=== PATIENT | female | born 1985 ===

== ENCOUNTER 2018-01-10 13:22 | Emergency (ER) | payer MEDICAID ==
[~2018-01-10 13:22] MED LIST: HYDR12.561 PO
--- NOTE | 2018-01-10 13:29 | ER Report ---
History and Physical Time Seen By MD: 13:29 Hx. of Stated Complaint: DIFFICULTY WITH FORMING SENTENCES FOR THE LAST HOUR. C/O LIGHTHEADEDNESS AND FEELING FOGGY HPI/ROS CHIEF COMPLAINT: Stroke symptoms HISTORY OF PRESENT ILLNESS: This is a 32-year-old female who presents to the emergency department with strokelike symptoms. According to she and her about 12:30 today she came home from her [employer] class and felt lightheaded, no dizziness and was having some difficulties finding her words. She was having some difficulties using her phone and having some difficulties concentrating and reading. Her became concerned and they decided come in for further evaluation. Patient does arrive alert and oriented but she feels that she is aphasic. She is able to think of the words but unable to express what she is thinking. Patient denies headaches, nausea, vomiting, aches, chills, chest pain or shortness of breath. REVIEW OF SYSTEMS: Constitutional: No fever, no chills. Eyes: No discharge. ENT: No sore throat. Cardiovascular: No chest pain, no palpitations. Respiratory: No cough, no shortness of breath. Gastrointestinal: No abdominal pain, no vomiting. Genitourinary: No hematuria. Musculoskeletal: No back pain. Skin: No rashes. Neurological: As above. Allergies: Coded Allergies: No Known Drug Allergies (Unverified , 05/04/17) Home Meds Discontinued Scripts Hydrochlorothiazide (HYDROCHLOROTHIAZIDE) 12.5 Mg Tablet, 1 TAB PO QDAY, #30 TAB 0 Refills Prov:PARAM PEDRAZA MD 05/04/17 Past Medical/Surgical History She has a past medical and surgical history of post nasal hypertension, 1 normal vaginal delivery. Reviewed Nurses Notes: Yes Hx Substance Use Disorder: No Constitutional Vital Sign - Last 24 Hours 01/10/18 01/10/18 01/10/18 01/10/18 13:26 16:15 16:20 16:30 Temp 98.7 Pulse 80 68 72 Resp 16 7 14 B/P (MAP) 148/98 125/89 (101) 125/89 (101) Pulse Ox 96 95 95 O2 Delivery Room Air 01/10/18 01/10/18 01/10/18 01/10/18 16:35 16:50 17:00 17:05 Pulse 70 75 71 Resp 24 10 12 B/P (MAP) 136/100 (112) Pulse Ox 94 96 95 01/10/18 01/10/18 01/10/18 17:20 17:30 17:35 Pulse 70 61 Resp 16 11 B/P (MAP) 131/91 (104) Pulse Ox 97 97 Physical Exam General Appearance: The patient is alert, has no immediate need for airway protection and no signs of toxicity. Eyes: Pupils equal and round no pallor or injection. EOMs intact, tracking well , no nystagmus. ENT, Mouth: Mucous membranes are moist. Respiratory: There are no retractions, lungs are clear to auscultation. Cardiovascular: Regular rate and rhythm, no murmurs, clicks or rubs. Gastrointestinal: Abdomen is soft and non tender, no masses, bowel sounds normal. Neurological: Alert and oriented 4. Moving all extremities. Mild left sided facial droop when smiling, cheeks puffed out. When sticking tongue out, slight deviation to the right. Intact shoulder shrug. Rapid alternating movements of the hands intact. Finger to nose intact. No pronator drift. Equal steel barrel reamer strength , very slight loss of sensation on the left lower and upper extremity. Heel-to- ramírez intact bilaterally. Skin: Warm and dry, no rashes. Musculoskeletal: Neck is supple non tender. Extremities are nontender, nonswollen and have full range of motion. DIFFERENTIAL DIAGNOSIS: After history and physical exam differential diagnosis was considered for altered mental status including but not limited to hypoglycemia, infectious process, electrolyte abnormality, TIA, stroke head injury and intoxicants. NIH Stroke Scale: 3 Level of consciousness:0 Alert Answers both questions correctly Performs both tasks correctly Best Gaze:0 Normal Visual:0 No visual loss Facial Palsy: 1 Normal, symmetrical movements Motor Left Arm:0 No drift for 10 seconds Motor Right Arm:0 No drift for 10 seconds Motor Left Le No drift for 5 seconds Motor Right Le No drift for 5 seconds Limb Ataxia:0 Absent Sensory: 1 Normal, no sensory loss Best Language: 1 Normal, no aphasia Dysarthria:0 Normal Extinction and Inattention:0 No abnormality Medical Decision Making Data Points Result Diagram: 01/10/18 1330 01/10/18 1330 Laboratory Hematology Test 01/10/18 13:30 Red Blood Count 5.14 M/uL (4.17-5.56) Mean Corpuscular Volume 88.2 fL (80.0-96.0) Mean Corpuscular Hemoglobin 30.8 pg (26.0-33.0) Mean Corpuscular Hemoglobin Concent 34.9 g/dL (32.0-36.0) Red Cell Distribution Width 12.9 % (11.5-14.5) Mean Platelet Volume 7.4 fL (7.2-11.1) Neutrophils (%) (Auto) 50.0 % (39.4-72.5) Lymphocytes (%) (Auto) 41.4 % (17.6-49.6) Monocytes (%) (Auto) 4.2 % (4.1-12.4) Eosinophils (%) (Auto) 3.6 % (0.4-6.7) Basophils (%) (Auto) 0.8 % (0.3-1.4) Nucleated RBC Relative Count (auto) 0.0 /100WBC Neutrophils # (Auto) 4.1 K/uL (2.0-7.4) Lymphocytes # (Auto) 3.4 K/uL (1.3-3.6) Monocytes # (Auto) 0.3 K/uL (0.3-1.0) Eosinophils # (Auto) 0.3 K/uL (0.0-0.5) Basophils # (Auto) 0.1 K/uL (0.0-0.1) Nucleated RBC Absolute Count (auto) 0.00 K/uL Peripheral Blood Smear No Y/N Prothrombin Time 12.5 seconds (12.0-14.4) Prothromb Time International Ratio 0.93 Activated Partial Thromboplast Time 28 seconds (23-35) Sodium Level 141 mmol/L (137-145) Potassium Level 3.6 mmol/L (3.5-5.0) Chloride Level 103 mmol/L (98-107) Carbon Dioxide Level 22 mmol/L (22-31) Blood Urea Nitrogen 14 mg/dl (7-18) Creatinine 1.00 mg/dl (0.52-1.04) Glomerular Filtration Rate Calc > 60.0 Random Glucose 83 mg/dl (75-110) Calcium Level 9.9 mg/dl (8.4-10.2) Total Bilirubin 0.4 mg/dl (0.2-1.3) Aspartate Amino Transf (AST/SGOT) 26 U/L (0-35) Alanine Aminotransferase (ALT/SGPT) 54 U/L (0-56) Alkaline Phosphatase 106 U/L (0-126) Troponin I < 0.012 ng/ml Total Protein 8.6 gm/dl (6.3-8.2) Albumin 4.9 g/dl (3.5-5.0) Human Chorionic Gonadotropin, Qual Negative (NEGATIVE) Chemistry Test 01/10/18 13:30 White Blood Count 8.1 k/uL (4.5-11.0) Red Blood Count 5.14 M/uL (4.17-5.56) Hemoglobin 15.9 g/dL (12.0-16.0) Hematocrit 45.4 % (34.0-47.0) Mean Corpuscular Volume 88.2 fL (80.0-96.0) Mean Corpuscular Hemoglobin 30.8 pg (26.0-33.0) Mean Corpuscular Hemoglobin Concent 34.9 g/dL (32.0-36.0) Red Cell Distribution Width 12.9 % (11.5-14.5) Platelet Count 273 K/uL (150-450) Mean Platelet Volume 7.4 fL (7.2-11.1) Neutrophils (%) (Auto) 50.0 % (39.4-72.5) Lymphocytes (%) (Auto) 41.4 % (17.6-49.6) Monocytes (%) (Auto) 4.2 % (4.1-12.4) Eosinophils (%) (Auto) 3.6 % (0.4-6.7) Basophils (%) (Auto) 0.8 % (0.3-1.4) Nucleated RBC Relative Count (auto) 0.0 /100WBC Neutrophils # (Auto) 4.1 K/uL (2.0-7.4) Lymphocytes # (Auto) 3.4 K/uL (1.3-3.6) Monocytes # (Auto) 0.3 K/uL (0.3-1.0) Eosinophils # (Auto) 0.3 K/uL (0.0-0.5) Basophils # (Auto) 0.1 K/uL (0.0-0.1) Nucleated RBC Absolute Count (auto) 0.00 K/uL Peripheral Blood Smear No Y/N Prothrombin Time 12.5 seconds (12.0-14.4) Prothromb Time International Ratio 0.93 Activated Partial Thromboplast Time 28 seconds (23-35) Glomerular Filtration Rate Calc > 60.0 Calcium Level 9.9 mg/dl (8.4-10.2) Total Bilirubin 0.4 mg/dl (0.2-1.3) Aspartate Amino Transf (AST/SGOT) 26 U/L (0-35) Alanine Aminotransferase (ALT/SGPT) 54 U/L (0-56) Alkaline Phosphatase 106 U/L (0-126) Troponin I < 0.012 ng/ml Total Protein 8.6 gm/dl (6.3-8.2) Albumin 4.9 g/dl (3.5-5.0) Human Chorionic Gonadotropin, Qual Negative (NEGATIVE) Coagulation Test 01/10/18 13:30 Prothrombin Time 12.5 seconds Prothromb Time International Ratio 0.93 Activated Partial Thromboplast Time 28 seconds EKG/Imaging EKG Interpretation 12 lead EKG: Time of EKG 1353. Rhythm: Normal sinus rhythm, 71 bpm. Midway: normal QRS: normal ST segments: No ST segment elevation or depression. Imaging Location: [facility] Patient: Shama Carmona : 1985 Visit/Account:[id number] Date of Sevice: 01/10/2018 CHEST PA AND LAT INDICATION: Lightheaded COMPARISON: None available FINDINGS: The cardiac silhouette is normal in size. No pneumothorax. Clear lungs. Normal osseous structures. No pleural fluid. IMPRESSION: Normal chest radiographs. Report Dictated By: Sacha Logan MD at 01/10/2018 2:20 PM Report E-Signed By: Sacha Logan MD at 01/10/2018 2:21 PM WSN:[id number] Location: [facility] Patient: Shama Carmona : 1985 Visit/Account:[id number] Date of Sevice: 01/10/[address] scan without contrast HISTORY: Lightheaded, aphasia COMPARISONS: None TECHNIQUE: Non-contrast head CT was performed with sagittal and coronal reformations. One of the following dose optimization techniques was utilized in the performance of this exam: automated exposure control; adjustment of the mA and/ or kV according to patient size; or use of iterative reconstruction technique. Specific details can be referenced in the facility's radiology CT exam operational policy. FINDINGS: There is no intracranial hemorrhage, hydrocephalus or midline shift. The basal cisterns, amezcua-white differentiation, and convexity sulci are maintained. Normal orbital soft tissues. Clear mastoid air cells. Opacification of a right ethmoid air cell. Shaina bullosa noted. No acute osseous abnormality. IMPRESSION: No acute intracranial abnormality. Report Dictated By: Sacha Logan MD at 01/10/2018 2:21 PM Report E-Signed By: Sacha Logan MD at 01/10/2018 2:23 PM WSN:[id number] Location: [facility] Patient: Shama Carmona : 1985 Visit/Account:[id number] [facility] Examination: MR brain without contrast History: Difficulty forming words Comparison: Head CT same day Technique: Multiplane MR imaging was performed through the brain without contrast. Findings: Diffusion: None Ventricles: Normal Midline shift: None Extraaxial fluid: None. Midline craniocervical structures: Normal Parenchyma: Normal Vascular flow voids: Normal Orbits and paranasal sinuses: Ethmoid sinus mucosal thickening. Impression: Normal non-contrast brain MR. Report Dictated By: Sacha Logan MD at 01/10/2018 4:14 PM Report E-Signed By: Sacha Logan MD at 01/10/2018 4:18 PM WSN:[id number] ED Course/Re-evaluation Clinical Indication for ER IV: IV Access ED Course The patient was admitted to a room. A history and physical were obtained. Differential diagnoses were considered. An IV was started. A CBC, CMP, PT INR and PTT were obtained. Laboratory studies unremarkable. CT of the head was negative for any acute intracranial abnormalities. NIH stroke scale of 3. The patient states that she is feeling better however she does still have some intermittent aphasic moments but overall she is feeling better. She also did tell me that she does have a left sided headache, but didn't think to mention this earlier when asked. I did review these results the patient's and her and I said the next up would be an MRI of the brain and rule out a nonhemorrhagic type of stroke. They are in agreement with this and we have elected to proceed with the MRI of the brain. Negative MRI of the brain. I did review these results with the patient and her . I did tell him that this is likely a TIA. I did speak with Dr. Tammy Bay as noted below. The patient's ultimately decided to go home and follow-up with her primary care provider for outpatient TIA workup with the understanding that she can return at any time if the symptoms return. Upon discharge the patient was feeling much better and no other complaints or concerns. Patient was in agreement with this plan of care and discharged home. 01/10/2018 5:00:29 pm I did speak with Dr. Tammy Bay regarding the patient's case. She felt that since the patient's symptoms are resolving and the patient had a negative CT and negative MRI that we could potentially send her home if that's what they would like and have her follow-up with her primary care provider for a carotid ultrasound and echocardiogram. 01/10/2018 5:26:14 pm I did discuss the possible admission with the family and they have elected to go home. I did discuss the pros and cons of both as well as worsening symptoms and they agreed that if anything changes they will come back to the emergency department. 01/10/2018 5:37:18 pm I did recommend a statin and aspirin for secondary prevention, however due to the patients status she would like to wait and discuss this in more detail with her primary care provider. Decision to Disposition Date: Jan 10, 2018 Decision to Disposition Time: 17:26 Depart Departure Latest Vital Signs Vital Signs Date Time Temp Pulse Resp B/P (MAP) Pulse Ox O2 Delivery O2 Flow Rate FiO2 01/10/18 17:35 61 11 97 01/10/18 17:30 131/91 (104) 01/10/18 13:26 98.7 Room Air Impression: Primary Impression: TIA (transient ischemic attack) Condition: Improved Disposition: HOME OR SELF-CARE Referrals: FARNAZ ALEJO (PCP) New Scripts No Active Prescriptions or Reported Meds Patient Instructions: Transient Ischemic Attack (ED) Additional Instructions: Be absolutely sure to contact her primary care provider on Friday for reevaluation as well as a TIA workup which would include carotid ultrasounds, echocardiogram, possible MRA. Be sure to monitor for signs and symptoms of stroke or recurrent symptoms. Be sure to discuss secondary prevention with your primary care provider such as statins and Aspirin. Drink plenty of water. Get plenty of rest. Continue with your current medications and daily routine. Return to the emergency department immediately for any other concerns or worsening symptoms. Problem Qualifiers Primary Impression: TIA (transient ischemic attack) Transient cerebral ischemia type: unspecified Qualified Codes: G45.9 - Transient cerebral ischemic attack, unspecified ALFRED BOWENP-BC Jan 10, 2018 13:29
[2018-01-10 13:56] LABS: PLATELET COUNT, AUTOMATED 273 K/uL (150-450)
[2018-01-10 14:01] LABS: INR 0.93
--- NOTE | 2018-01-10 14:15 | EKG ---
FACILITY: [facility] PATIENT NAME: KRISSY ZHANG : [id number] MR: [id number] V: [id number] EXAM DATE: ORDERING PHYSICIAN: ALFRED BOWEN TECHNOLOGIST: ELVER Test Reason : DIZZY Blood Pressure : / mmHG Vent. Rate : 071 BPM Atrial Rate : 071 BPM P-R Int : 156 ms QRS Dur : 092 ms QT Int : 376 ms P-R-T Axes : 035 014 006 degrees QTc Int : 408 ms Normal sinus rhythm Normal ECG No previous ECGs available Confirmed by NAHUN WALKER ([id number]) on 01/10/2018 8:00:07 PM Referred By: MILO Confirmed By:NAHUN WALKER
--- NOTE | 2018-01-10 14:24 | RADIOLOGY IMAGING REPORT ---
FACILITY: [facility] [place] PATIENT NAME: Shama Carmona : 1985 MR: [id number] V: [id number] EXAM DATE: ORDERING PHYSICIAN: ALFRED BOWEN TECHNOLOGIST: Location: [facility] [place] Patient: Shama Carmona : 1985 Visit/Account:[id number] Date of Sevice: 01/10/2018 CHEST PA AND LAT INDICATION: Lightheaded COMPARISON: None available FINDINGS: The cardiac silhouette is normal in size. No pneumothorax. Clear lungs. Normal osseous st ructures. No pleural fluid. IMPRESSION: Normal chest radiographs. Report Dictated By: Sacha Logan MD at 01/10/2018 2:20 PM Report E-Signed By: Sacha Logan MD at 01/10/2018 2:21 PM WSN:[id number]
--- NOTE | 2018-01-10 14:27 | RADIOLOGY IMAGING REPORT ---
FACILITY: [facility] [place] PATIENT NAME: Shama Carmona : 1985 MR: [id number] V: [id number] EXAM DATE: ORDERING PHYSICIAN: ALFRED BOWEN TECHNOLOGIST: [place] [facility] [place]: Shama Carmona : 1985 Visit/Account:[id number] Date of Sevice: 01/10/[address] scan without contrast HISTORY: Lightheaded, aphasia COMPARISONS: None TECHNIQUE: Non-contrast head CT was performed with sagittal and coronal reformations. One of the following dose optimization techniques was utilized in the performance of this exam: autom ated exposure control; adjustment of the mA and/or kV according to patient size; or use of iterative reconstruction technique. Specific details can be referenced in the facility's radiology CT exam ope rational policy. FINDINGS: There is no intracranial hemorrhage, hydrocephalus or midline shift. The basal cisterns, amezcua-white differentiation, and convexity sulci are maintained. Normal orbital soft tissues. Clear mastoid air cells. Opacification of a right ethmoid air cell. Shaina bullosa noted. No acute os seous abnormality. IMPRESSION: No acute intracranial abnormality. Report Dictated By: Sacha Logan MD at 01/10/2018 2:21 PM Report E-Signed By: Sacha Loagn MD at 01/10/2018 2:23 PM WSN:[id number]
--- NOTE | 2018-01-10 16:24 | RADIOLOGY IMAGING REPORT ---
FACILITY: PATIENT NAME: Shama Carmona : 1985 MR: [id number] V: [id number] EXAM DATE: ORDERING PHYSICIAN: ALFRED BOWEN TECHNOLOGIST: Location: [facility] [place] Patient: Shama Carmona : 1985 Visit/Account:[id number] Date of Sevice: 01/10/2018 Examination: MR brain without contrast History: Difficulty forming words Comparison: Head CT same day Technique: Multiplane MR imaging was performed through the brain without contrast. Findings: Diffusion: None Ventricles: Normal Midline shift: None Extraaxial fluid: None. Midline craniocervical structures: Normal Parenchyma: Normal Vascular flow voids: Normal Orbits and paranasal sinuses: Ethmoid sinus mucosal thickening. Impression: Normal non-contrast brain MR. Report Dictated By: Sacha Logan MD at 01/10/2018 4:14 PM Report E-Signed By: Sacha Logan MD at 01/10/2018 4:18 PM WSN:[id number]
[2018-01-10 17:30] VITALS: BP 131/91
== END 2018-01-10 17:56 | disposition home or self-care (01) ==
LOC: ER 13:37
DX: G45.9 Transient cerebral ischemic attack, unspecified (principal)
CPT/HCPCS: 70450; 70551; 71046; 82040; 82247; 82310; 82374; 82435; 82565; 82947; 84075; 84132; 84155; 84295; 84450; 84460; 84484; 84520; 84703; 85025; 85610; 85730; 93005; 99284

== ENCOUNTER → 2018-01-16 | Outpatient (CLI) | payer MEDICAID ==
--- NOTE | 2018-01-16 17:27 | RADIOLOGY IMAGING REPORT ---
FACILITY: [facility] PATIENT NAME: Shama Carmona : 1985 MR: [id number] V: [id number] EXAM DATE: ORDERING PHYSICIAN: FARNAZ ALEJO TECHNOLOGIST: Location: [facility] Patient: Shama Carmona : 1985 Visit/Account:[id number] Date of Sevice: 01/16/2018 CAROTID HISTORY: Possible TIA COMPARISON: None. FINDINGS: Grayscale, duplex and color Doppler interrogation of the extracranial carotid and vertebral arteries was performed bilateral. On the right, peak systolic velocities within the common and internal carotid arteries are 106 and 94 cm/sec respectively. No plaque formation is identified. Doppler waveforms are within normal limits .. Antegrade flow within the common, internal and external carotid arteries as well as vertebral art luh. ICA/CCA ratio 0.9. On the left, peak systolic velocities within the common and internal carotid arteries are 113 and 70 cm/sec respectively. No plaque formation is identified. Doppler waveforms are within normal limits. . Antegrade flow within the common, internal and external carotid arteries as well as vertebral mayur ry. ICA/CCA ratio 0.6. IMPRESSION: Normal carotid ultrasound Velocity criteria are extrapolated from diameter data as defined by the Society of Radiologists in [facility] Consensus Conference Radiology 2003; 229;340-346 Report Dictated By: Jayden Barton at 01/16/2018 5:21 PM Report E-Signed By: Jayden Barton at 01/16/2018 5:22 PM WSN:SALTY
== END ==
LOC: US 01-15 01:10
PROVIDERS: ATTEND Nurse Practitioner Family
DX: G45.9 Transient cerebral ischemic attack, unspecified (principal); I10 Essential (primary) hypertension; E78.5 Hyperlipidemia, unspecified
CPT/HCPCS: 93880

== ENCOUNTER → 2018-01-16 | Outpatient (CLI) | payer MEDICAID ==
--- NOTE | 2018-01-19 14:36 | RADIOLOGY IMAGING REPORT ---
FACILITY: PATIENT NAME: KRISSY ZHANG : [id number] MR: [id number] V: [id number] EXAM DATE: [id number] ORDERING PHYSICIAN: VERONIKA HAQUE TECHNOLOGIST: Veronika Severino EXAMINATION:TWO-DIMENSIONAL ECHOCARDIOGRAPH REASON: QUESTIONABLE STROKE 2D Measurements (normal values in centimeters) LV endLV endRV endVent.LV PostAorticLeftPercent DiastolicSystolicDiastolicSeptumWallRootAtriumShortening (3.5-5.7)(0.9-2.6)(0.6-1.1)(0.6-1.1)(2.0-3.7)(1.9-4.0)(25-35%) [id number] STROKE VOLUME: 59 ESTIMATED EJECTION FRACTION: 68% PARASTERNAL LONG AXIS: Overall left ventricular systolic function appears to be normal. Chamber sizes also appear to be normal. Aortic valve and mitral valve both appear to open normally. Color examination reveals a trace of mitral insufficiency. Color examination of the aortic valve was unremarkable. Also a trace of tricuspid insufficiency is noted. PARASTERNAL SHORT AXIS: Overall left ventricular systolic function is normal. Chamber sizes also appear to be normal. Aortic valve was trileaflet in configuration and appears to open normally. Color examination tricuspid valve reveals a trace amount of tricuspid insufficiency present. APICAL FOUR AND TWO CHAMBER: Normal left ventricular ejection fraction. Normal chamber sizes. Trace of mitral and tricuspid insufficiency is noted. The aortic valve area and mitral valve area both measure within normal ranges of 2.5 and 2.2cm/2 respectfully. The left atrial and right atrial volumes also measure within normal ranges 19 and 22ml/m2. Tricuspid regurgitation Vmax measured 2.16m/sec. Estimated right atrial pressure is 3mm Hg giving a total right ventricular pressure within normal ranges at 22mm Hg. The TAPSE measured 2.7 which is indicative of normal right ventricular function. SUBCOSTAL VIEW: No pericardial effusion was noted. No atrioseptal or ventriculoseptal defects were noted. Agitated saline bubble contrast study was done. Doppler examination of the mitral valve in diastole is normal. IVC is normal in size. OVERALL IMPRESSION: 1. Essentially normal Two-Dimensional Echocardiograph. Normal left ventricular systolic and diastolic function and normal chamber sizes. The patient appears to be in sinus rhythm. Normal aortic valve with no abnormalities. There is a trace of mitral and tricuspid insufficiency with normal right ventricular systolic pressures. 2. No atrioseptal or ventriculoseptal defects were noted and an agitated saline bubble contrast study was done. No thrombi are noted in any of the chambers but the left atrial appendage was not seen. Dictated by: John Paul Pichardo M.D. on 01/16/2018 at 22:02 Transcribed by: RAY on 01/19/2018 at 11:42 Approved by: John Paul Pichardo M.D. on 01/19/2018 at 14:35 [facility]
== END ==
LOC: US 03:09
PROVIDERS: ATTEND Physician Assistant Medical
DX: I34.0 Nonrheumatic mitral (valve) insufficiency (principal); I07.1 Rheumatic tricuspid insufficiency
CPT/HCPCS: 93306; 93880

== ENCOUNTER → 2018-12-07 | Outpatient (CLI) | payer OTHER ==
[~2018-12-07] MED LIST changes: +FLU60SYR36 IM; +PREN-127 PO
[2018-12-07 11:37] LABS: PLATELET COUNT, AUTOMATED 244 K/uL (150-450)
== END ==
LOC: LAB 08:06
PROVIDERS: ATTEND Obstetrics & Gynecology
DX: Z34.81 Encounter for supervision of other normal pregnancy, first trimester (principal)
CPT/HCPCS: 36415; 81001; 85025; 86592; 86703; 86762; 86850; 86900; 86901; 87088; 87340

== ENCOUNTER → 2018-12-11 | Outpatient (CLI) | payer OTHER | LOC: LAB 14:17 | PROVIDERS: ATTEND Advanced Practice Midwife | DX: Z11.8 Encounter for screening for other infectious and parasitic diseases (principal); Z11.3 Encounter for screening for infections with a predominantly sexual mode of transmission | CPT/HCPCS: 87491; 87591 ==

== ENCOUNTER → 2018-12-14 | Outpatient (CLI) | payer OTHER ==
--- NOTE | 2018-12-14 12:45 | RADIOLOGY IMAGING REPORT ---
FACILITY: [facility] [place] PATIENT NAME: Shama Carmona : 1985 MR: [id number] V: [id number] EXAM DATE: ORDERING PHYSICIAN: ROBERT CHOUDHURY TECHNOLOGIST: Location[place] [facility] [place] Patient: Shama Carmona : 1985 Visit/Account:[id number] Date of Sevice: 12/14/2018 [facility] OB TRANSVAGINAL EXAMINATION: OB ultrasound < 14 weeks COMPARISON STUDIES: None FINDINGS: Gastrointestinal sac: Intrauterine and unremarkable Yolk sac: Present pole: Present Cardiac activity: 161 bpm Estimated gestational age: 10 weeks, three days is based on average crown-rump length of 3.48 cm. Subchorionic hemorrhage: None Uterus: Gravid, otherwise negative Maternal ovaries: Right ovary measuring 3.5 x 2 x 1.6 cm in size. Left ovary measuring 3.2 x 1.6 x 1 .7 cm Adnexa:Negative Free pelvic fluid: None IMPRESSION: IUP of 10 weeks three days. DIMAS of 07/09/2019. This is slightly ahead of the LMP DIMAS calculated at Report Dictated By: Gavino Fernandez MD at 12/14/2018 12:38 PM Report E-Signed By: Gavino Fernandez MD at 12/14/2018 12:41 PM WSN:[email or web address]
== END ==
LOC: RAD 10:00
PROVIDERS: ATTEND Advanced Practice Midwife
DX: Z02.9 Encounter for administrative examinations, unspecified (principal)

== ENCOUNTER → 2019-01-08 | Outpatient (CLI) | payer OTHER | LOC: LAB 13:14 | PROVIDERS: ATTEND Advanced Practice Midwife | DX: Z02.9 Encounter for administrative examinations, unspecified (principal) ==

== ENCOUNTER → 2019-02-08 | Outpatient (CLI) | payer OTHER ==
--- NOTE | 2019-02-08 14:42 | RADIOLOGY IMAGING REPORT ---
FACILITY: [facility] - [place] PATIENT NAME: Shama Carmona : 1985 MR: [id number] V: [id number] EXAM DATE: ORDERING PHYSICIAN: ROBERT CHOUDHURY TECHNOLOGIST: Location: [facility] - [place] Patient: Shama Carmona : 1985 Visit/Account:[id number] Date of Sevice: 02/08/2019 EXAMINATION: Ultrasound transabdominal OB > 14 weeks with anatomic evaluation HISTORY: 20 week anatomical survey COMPARISON: December 14, 2018 TECHNIQUE: Transabdominal imaging was performed for assessment of the fetus and maternal pelvic structures. T ransvaginal imaging was not performed. FINDINGS: Placenta: Posterior without previa. Uterus: Gravid, otherwise normal Cervix: Long and closed. Maternal Ovaries: Not visualized. Maternal and other adnexa findings: Not visualized Intrauterine gestations: One. presentation: Variable heart rate: Normal and regular at 144 bpm Amniotic fluid index: 10.56 cm Largest amniotic fluid pocket: 3.13 cm Gestational Parameters: BPD: 4.14 cm 18 weeks/ four days, 75% HC: 15.85 cm 18 weeks/ five days, 77% AC: 13.17 cm 18 weeks/ five days, 70% FL: 2.79 cm 18 weeks/ four days, 66% Average ultrasound age (AUA): 18 weeks/five days, DIMAS 06/29/2019 Estimated gestational age by DIMAS: 18 weeks/zero days, DIMAS 07/12/2019 Estimated weight (EFW): 249 grams +/- 37 grams EFW for DIMAS: 82 percentile Anatomic Survey: Intracranial structures, 4-chamber heart, stomach, kidneys, urinary bladder, spine, 3-vessel cord and cord insertion are unremarkable. Two upper and two lower extremities visualized. Cardiac ventricula r outflow tracts, palate and lips are unremarkable in appearance. IMPRESSION: Single viable fetus in viable presentation with an estimated gestational age by measurem ents of 18 weeks and five days. Estimated gestational age by LMP is 18 weeks and zero days Estimated weight is 249 g consistent with 82nd percentile Report Dictated By: Melisa Boston MD at 02/08/2019 2:32 PM Report E-Signed By: Melisa Boston MD at 02/08/2019 2:38 PM WSN:BAM
== END ==
LOC: US 10:49
PROVIDERS: ATTEND Obstetrics & Gynecology
DX: Z02.9 Encounter for administrative examinations, unspecified (principal)

== ENCOUNTER → 2019-02-08 | Outpatient (CLI) | payer OTHER | LOC: LAB 12:29 | PROVIDERS: ATTEND Advanced Practice Midwife | DX: O16.2 Unspecified maternal hypertension, second trimester (principal) | CPT/HCPCS: 36415; 82040; 82247; 82310; 82374; 82435; 82565; 82947; 84075; 84132; 84155; 84156; 84295; 84450; 84460; 84520; 85027; 87491; 87591 ==

== ENCOUNTER → 2019-02-11 | Outpatient (CLI) | payer OTHER | LOC: LAB 13:17 | PROVIDERS: ATTEND Advanced Practice Midwife | DX: O16.2 Unspecified maternal hypertension, second trimester (principal) | CPT/HCPCS: 84156 ==

== ENCOUNTER → 2019-04-16 | Outpatient (CLI) | payer OTHER ==
[~2019-04-16] MED LIST changes: +DIPH0.5S2 IM
[2019-04-16 12:30] LABS: PLATELET COUNT, AUTOMATED 213 K/uL (150-450)
== END ==
LOC: LAB 11:26
PROVIDERS: ATTEND Advanced Practice Midwife
DX: Z34.92 Encounter for supervision of normal pregnancy, unspecified, second trimester (principal)
CPT/HCPCS: 36415; 82950; 85025

== ENCOUNTER → 2019-04-22 | Outpatient (CLI) | payer OTHER ==
[~2019-04-22] MED LIST changes: +BLOO-1511 MC; +BLOO-960 MC; +LANC-165 ASDIRECTED
--- NOTE | 2019-04-22 11:21 | RADIOLOGY IMAGING REPORT ---
[facility] PATIENT NAME: Shama Carmona : 1985 MR: [id number] V: [id number] EXAM DATE: ORDERING PHYSICIAN: ROBERT CHOUDHURY TECHNOLOGIST: Location: [facility] - [place] Patient: Shama Carmona : 1985 Visit/Account:[id number] Date of Sevice: 04/22/2019 EXAMINATION: Ultrasound transabdominal OB > 14 weeks with anatomic evaluation HISTORY: Maternal hypertension COMPARISON: February 08, 2019 TECHNIQUE: Transabdominal imaging was performed for assessment of the fetus and maternal pelvic structures. T ransvaginal imaging was not performed. FINDINGS: Placenta: Posterior without previa. Uterus: Gravid, otherwise normal Cervix: Long and closed. Maternal Ovaries: Not visualized. Maternal and other adnexa findings: Not visualized Intrauterine gestations: One. presentation: Cephalic presentation with the spine to the maternal left heart rate: Normal and regular at 133 bpm Amniotic fluid index: 11.17 cm Largest amniotic fluid pocket: 3.84 cm Gestational Parameters: BPD: 7.23 cm 29 weeks/ one days, 58% HC: 26.63 cm 29 weeks/ one days, 35% AC: 24.8 cm 29 weeks/ one days, 62% FL: 5.48 cm 29 weeks/ zero days, 50% Average ultrasound age (AUA): 29 weeks/one days, DIMAS 07/07/2019 Estimated gestational age by LMP: 28 weeks/three days, DIMAS 07/12/2019 Estimated weight (EFW): 1318 grams +/- 193 grams EFW for LMP: 59 percentile Anatomic Survey: Anatomic survey not performed IMPRESSION: Single viable fetus in cephalic presentation with an estimated gestational age by measur ements of 29 weeks and one day. The estimated gestational age by LMP is 20 weeks and three days. Estimated weight is 1318 g equivalent to the 59th percentile Report Dictated By: Melisa Boston MD at 04/22/2019 11:14 AM Report E-Signed By: Melisa Boston MD at 04/22/2019 11:17 AM WSN:BAM
== END ==
LOC: RAD 09:43
PROVIDERS: ATTEND Obstetrics & Gynecology
DX: Z02.9 Encounter for administrative examinations, unspecified (principal)

== ENCOUNTER → 2019-04-22 | Outpatient (CLI) | payer OTHER | LOC: RAD 09:46 | PROVIDERS: ATTEND Obstetrics & Gynecology | DX: Z02.9 Encounter for administrative examinations, unspecified (principal) ==